=== PATIENT | female | born 1950 | race African-American/Black ===

== ENCOUNTER 2017-03-29 02:56 | Emergency (ER) | payer MEDICARE, OTHER ==
[~2017-03-29] VITALS: Ht 152.4 cm; Wt 81.6 kg
--- NOTE | 2017-03-29 03:15 | NUR ---
Pt BIB [facility], reports that pt was tachypnic at 30-36 and had carpal/pedal spasms; Blood glucose was 185 in field. Pt c/o dizziness and bilateral leg pain, 910, ongoing issue; Pt has +2 non-pitting edema in lower left leg. Also c/o slight dyspnea, LS = w/crackles. Denies CP, n/v, no other complaints, no distress noted.
[2017-03-29] MEDS ORDERED: TRAZ-144 PO (03:26)
[2017-03-29] MEDS ORDERED: TRAM50TA2 PO (03:26)
[2017-03-29] MEDS ORDERED: HYDR-552 PO (03:26)
[2017-03-29] MEDS ORDERED: ATOR80TA PO (03:26)
[2017-03-29] MEDS ORDERED: METO25TA6 PO (03:26)
[2017-03-29] MEDS ORDERED: CITA20TA19 PO (03:26)
[2017-03-29] MEDS ORDERED: POTA-88 PO (03:26)
[2017-03-29] MEDS ORDERED: HYDR12.55 PO (03:26)
[2017-03-29] MEDS ORDERED: SITA100T PO (03:26)
[2017-03-29] MEDS ORDERED: LABETALOL 20 MG/4 ML VIAL IV ONE (03:51)
[2017-03-29 03:52] VITALS: BP 162/138
[2017-03-29] MEDS: LABETALOL HCL 100 MG/20 ML VIAL IV ONE (03:52)
[2017-03-29 03:55] LABS: BASOPHILS % (AUTO) 0.3 % (0.0-2.0); EOSINOPHILS # (AUTO) 0.1 K/uL (0.0-0.7); EOSINOPHILS % (AUTO) 1.2 % (0.0-7.0); HEMATOCRIT 36.6 % (37-47); HEMOGLOBIN 12.3 G/DL (12.0-16.0); LYMPHOCYTES # (AUTO) 1.8 K/UL (0.8-4.8); LYMPHOCYTES % (AUTO) 16.6 % (20.5-51.5); MEAN CORPUSCULAR HEMOGLOBIN 25.5 UUG (27.0-31.0); MEAN CORPUSCULAR HGB CONC 34 g/dL (32.0-37.0); MEAN CORPUSCULAR VOLUME 75.4 FL (81.0-99.0); MONOCYTES # (AUTO) 0.3 K/UL (0.1-1.30); MONOCYTES % (AUTO) 2.5 % (0.0-11.0); NEUTROPHILS # (AUTO) 8.5 K/UL (1.8-8.9); NEUTROPHILS % (AUTO) 79.4 % (38.5-71.5); PLATELET COUNT (AUTO) 325 K/UL (150-450); RED BLOOD CELL COUNT(AUTO) 4.85 MIL/UL (4.2-5.4); RED CELL DISTRIBUTION WIDTH 15.9 % (11.5-14.5); WHITE BLOOD COUNT (AUTO) 10.7 K/UL (4.0-11.2)
[2017-03-29 03:59] LABS: HYPOCHROMASIA 1+; POTASSIUM 3.7 mmol/L (3.5-5.1)
[2017-03-29 04:00] LABS: ANISOCYTOSIS 1+
--- NOTE | 2017-03-29 04:52 | NUR ---
Call placed to [facility] for PET evaluation, Desmond PRITCHARD 60 min.
[2017-03-29 04:56] LABS: *BILIRUBIN,URIN NEGATIVE (NEGATIVE); *BLOOD, URINE NEGATIVE (NEGATIVE); *CLARITY,URINE SLIGHTLY CLOUDY (CLEAR); *COLOR,URINE YELLOW (YELLOW); *KETONES,URINE NEGATIVE (NEGATIVE); *PROTEIN,URINE NEGATIVE (NEGATIVE); *UROBILINOGEN,URINE 0.2 E.U./dl (NORMAL); LEUKOCYTE ESTERASE ,URINE NEGATIVE (NEGATIVE); NITRITE, URINE NEGATIVE (NEGATIVE); UGLUCOSE NEGATIVE (NEGATIVE)
[2017-03-29 05:00] LABS: BACTERIA,URINE FEW /HPF (NONE SEEN); RBC,URINE 0-3 /HPF (0-3); SQUAMOUS EPITHELIAL CELL,UR MANY /HPF (NONE SEEN); WBC,URINE 0-3 /HPF (0-3)
--- NOTE | 2017-03-29 05:00 | NUR ---
Pt sleeping in bed, no distress noted, VSS.
--- NOTE | 2017-03-29 05:45 | NUR ---
[employer] bedside w/pt and family.
[2017-03-29] MEDS: ALPRAZOLAM 0.25 MG TABLET PO ONE (06:05)
[2017-03-29] MEDS ORDERED: ALPRAZOLAM 0.25 MG TABLET ONE (06:10)
--- NOTE | 2017-03-29 06:56 | NUR ---
Gave pt and family RX and d/c instructions, verbalized understanding.
== END 2017-03-29 06:58 | disposition home or self-care (01) ==
LOC: ER 03:00
DX: F41.9 Anxiety disorder, unspecified (principal); I10 Essential (primary) hypertension; R60.0 Localized edema; J45.909 Unspecified asthma, uncomplicated; E11.9 Type 2 diabetes mellitus without complications; Z59.0 Homelessness
CPT/HCPCS: 36415; 71010; 85025; 85730; 93005; A4663; J3490

== ENCOUNTER 2017-03-29 16:48 | Inpatient (IN) | payer MEDICARE, OTHER ==
[~2017-03-29] VITALS: Ht 152.4 cm; Wt 80.7 kg
[~2017-03-29 16:48] MED LIST: ATOR80TA PO; CITA20TA19 PO; HYDR-552 PO; HYDR12.55 PO; METO25TA6 PO; POTA-88 PO; SITA100T PO; TRAM50TA2 PO; TRAZ-144 PO
[2017-03-29] MEDS ORDERED: LABETALOL HCL 100 MG/20 ML VIAL IV ONE (17:00)
--- NOTE | 2017-03-29 17:12 | NUR ---
Tracie ibarra in [facility] - 03/29/17 at 1734 [address] PT [address]
[2017-03-29 17:23] LABS: *BLOOD, URINE Trace-intact (NEGATIVE); *CLARITY,URINE SLIGHTLY CLOUDY (CLEAR); *COLOR,URINE YELLOW (YELLOW); *KETONES,URINE NEGATIVE (NEGATIVE); *PROTEIN,URINE 2+ (NEGATIVE); *UROBILINOGEN,URINE 0.2 E.U./dl (NORMAL); LEUKOCYTE ESTERASE ,URINE NEGATIVE (NEGATIVE); NITRITE, URINE NEGATIVE (NEGATIVE); UGLUCOSE NEGATIVE (NEGATIVE)
[2017-03-29] MEDS ORDERED: LABETALOL 20 MG/4 ML VIAL IV ONE (17:23)
[2017-03-29 17:26] LABS: *BILIRUBIN,URIN 1+ (NEGATIVE)
[2017-03-29 17:33] LABS: BACTERIA,URINE MODERATE /HPF (NONE SEEN); ICTOTEST POSITIVE (NEGATIVE); MUCUS,URINE FEW /LPF (0-FEW); RBC,URINE 0-3 /HPF (0-3); SQUAMOUS EPITHELIAL CELL,UR FEW /HPF (NONE SEEN); WBC,URINE 0-3 /HPF (0-3)
[2017-03-29] MEDS ORDERED: MORPHINE SULFATE 2 MG/1 ML DISP.SYRIN IV ONE (17:45)
[2017-03-29] MEDS ORDERED: ONDANSETRON IV *ER 4 MG/2 ML VIAL IV ONE (17:45)
[2017-03-29] MEDS ORDERED: ONDANSETRON 4 MG/2 ML VIAL ONE (17:50)
[2017-03-29] MEDS ORDERED: MORPHINE SULFATE 2 MG/1 ML DISP.SYRIN ONE (17:50)
--- NOTE | 2017-03-29 17:50 | NUR ---
PT TO CT
--- NOTE | 2017-03-29 18:45 | NUR ---
PT TRANSFERED TO FLOOR I NSTABLE CONDITION
--- NOTE | 2017-03-29 18:55 | NUR ---
PT IS LAYING IN BED. FAMILY IS WITH THE PT. NO S/S OF RESPIRATORY DISTRESS NOTED. PAIN IS REPORTED BY THE PT, WILL ADVICE NOC NURSE. IV INTACT/PATENT.
--- NOTE | 2017-03-29 19:00 | NUR ---
PATIENT ADMITTED UNDER THE CARE OF DR. GLEZ, TELE UNIT, ORIENT TO CALL LIGHTS, BATHROOM, FAMILY AT BEDSIDE. MD AWARE WITH ADMISSION ORDERS.
[2017-03-29 19:05] VITALS: BP 158/89
[2017-03-29] MEDS ORDERED: MAGNESIUM HYDROXIDE 30 ML LIQUID UDC PO PRN (20:45)
[2017-03-29] MEDS ORDERED: hydrALAZINE HCL 25 MG TABLET PO PRN (20:45)
[2017-03-29] MEDS ORDERED: ONDANSETRON 4 MG/2 ML VIAL IV PRN (20:45)
[2017-03-29] MEDS ORDERED: DEXTROSE 50% 50 ML DISP.SYRIN IV PRN (20:45)
[2017-03-29] MEDS ORDERED: ZOLPIDEM 5 MG TABLET PO PRN (20:45)
[2017-03-29] MEDS ORDERED: ACETAMINOPHEN 325 MG TABLET PO PRN (20:45)
[2017-03-29] MEDS ORDERED: HYDROCODONE/APAP 5-325MG TABLET PO PRN (20:45)
[2017-03-29] MEDS ORDERED: DOCUSATE SODIUM 250 MG CAPSULE PO SCH (21:00)
[2017-03-29] MEDS ORDERED: ATORVASTATIN 40 MG TABLET PO SCH (21:00)
[2017-03-29] MEDS ORDERED: Medication Not On Formulary EA (Atorvastatin Calcium (Lipitor) 80 MG) PO SCH (21:00)
[2017-03-29] MEDS: TRAZODONE 50 MG TABLET PO SCH (21:22)
[2017-03-29] MEDS: BLOOD SUGAR DIAGNOSTIC 1 EACH STRIP VI SCH (21:23)
[2017-03-29] MEDS: METOPROLOL TARTRATE 50 MG TABLET PO SCH (21:24)
[2017-03-29] MEDS: INSULIN REGULAR, HUMAN 300 UNIT/3 ML VIAL SQ PRN (21:35)
[2017-03-30] VITALS: BP 150/85
[2017-03-30 04:42] VITALS: BP 110/73
[2017-03-30] MEDS: HYDROCODONE/APAP 5-325MG TABLET PO PRN (05:06)
--- NOTE | 2017-03-30 05:09 | NUR ---
PATIENT SLEPT MOST OF THE NIGHT, RYTHM IS SINUS RYTHM , KEPT CLEAN AND DRY, ON PAIN MANAGEMENT, KEPT BOTH FEET ELEVATED WITH PILLOW. CONT TO MONITOR.
[2017-03-30] MEDS: BLOOD SUGAR DIAGNOSTIC 1 EACH STRIP VI SCH ×4 (06:12→21:35)
[2017-03-30] MEDS: PANTOPRAZOLE SODIUM 40 MG TABLET.DR PO SCH (06:12)
[2017-03-30 07:00] LABS: ALBUMIN 2.6 g/dL (3.4-5.0); BILIRUBIN,TOTAL 0.9 mg/dL (0.2-1.0); CALCIUM 8.3 mg/dL (8.5-10.1); MAGNESIUM 1.6 mg/dL (1.8-2.4); PHOSPHOROUS 3.7 mg/dL (2.5-4.9); POTASSIUM 3.4 mmol/L (3.5-5.1); TOTAL PROTEIN, SERUM 6.2 g/dL (6.4-8.2)
[2017-03-30 07:03] LABS: THYROID STIMULATING HORMONE 2.473 mIU/mL (0.358-3.740)
[2017-03-30 07:19] LABS: CREATININE 1.4 mg/dL (0.6-1.3)
[2017-03-30 07:38] LABS: BASOPHILS # (AUTO) 0.1 K/uL (0.0-8.0); BASOPHILS % (AUTO) 0.6 % (0.0-2.0); EOSINOPHILS # (AUTO) 0.3 K/uL (0.0-0.7); EOSINOPHILS % (AUTO) 3.6 % (0.0-7.0); LYMPHOCYTES # (AUTO) 2.3 K/UL (0.8-4.8); LYMPHOCYTES % (AUTO) 27.1 % (20.5-51.5); MEAN CORPUSCULAR HEMOGLOBIN 24.6 UUG (27.0-31.0); MEAN CORPUSCULAR HGB CONC 32 g/dL (32.0-37.0); MONOCYTES # (AUTO) 0.5 K/UL (0.1-1.30); MONOCYTES % (AUTO) 6.1 % (0.0-11.0); NEUTROPHILS # (AUTO) 5.2 K/UL (1.8-8.9); NEUTROPHILS % (AUTO) 62.6 % (38.5-71.5); PLATELET COUNT (AUTO) 277 K/UL (150-450); RED BLOOD CELL COUNT(AUTO) 4.48 MIL/UL (4.2-5.4); WHITE BLOOD COUNT (AUTO) 8.4 K/UL (4.0-11.2)
--- NOTE | 2017-03-30 08:00 | NUR ---
RECEIVED CHANGE OF SHIFT REPORT. PT IS A/OX1. AROUSABLE BY NAME AND LIGHT TOUCH. PT V/S STABLE. NO ACUTE DISTRESS. PT COMPLAINS OF PAIN 7/10 IN LOWER EXTREMITY BILATERALLY. LEGS ELEVATED. COMPRESSION DEVICE IN PLACE. PT NEEDS MET AT THIS TIME.
[2017-03-30] MEDS: CITALOPRAM 20 MG TABLET PO SCH (08:20)
[2017-03-30] MEDS: POTASSIUM CHLORIDE 20 MEQ TAB.PRT.SR PO SCH (08:21)
[2017-03-30] MEDS: LINAGLIPTIN 5 MG TABLET PO SCH (08:22)
[2017-03-30] MEDS: METOPROLOL TARTRATE 50 MG TABLET PO SCH ×2 (08:22→21:00)
[2017-03-30] MEDS: TRAMADOL HCL 50 MG TABLET PO SCH ×2 (08:26→17:37)
[2017-03-30] MEDS: MIRALAX 17 GM POWD.PACK PO SCH (08:26)
[2017-03-30] MEDS: INSULIN REGULAR, HUMAN 300 UNIT/3 ML VIAL SQ PRN ×2 (08:39→13:03)
[2017-03-30] MEDS ORDERED: Medication Not On Formulary EA (Sitagliptin Phosphate (Januvia) 100 MG) PO SCH (09:00)
[2017-03-30] MEDS ORDERED: HYDROCHLOROTHIAZIDE 12.5 MG CAPSULE PO SCH (09:00)
[2017-03-30] MEDS ORDERED: Medication Not On Formulary EA (Hydrochlorothiazide 12.5 MG) PO SCH (09:00)
[2017-03-30 10:42] LABS: ANISOCYTOSIS 1+; HYPOCHROMASIA 1+; OVALOCYTES 2+
[2017-03-30 11:05] VITALS: BP 100/49
[2017-03-30 15:23] VITALS: BP 97/50
[2017-03-30] MEDS ORDERED: POTASSIUM CHLORIDE 20 MEQ TAB.PRT.SR PO ONE (15:45)
[2017-03-30] MEDS: MAGNESIUM SULFATE/D5W 100 ML IV SCH ×2 (17:26→18:46)
--- NOTE | 2017-03-30 18:30 | NUR ---
END OF SHIFT NOTES. PT A/OX3. V/S WNL. PT STABLE. NO SIGNS OF ACUTE DISTRESS. CALL LIGHT WITHIN REACH. COMFORT AND SAFETY MEASURES MET.
[2017-03-30 19:51] VITALS: BP 100/51
[2017-03-30] MEDS: DOCUSATE SODIUM 100 MG CAPSULE PO SCH ×2 (21:00→21:31)
--- NOTE | 2017-03-30 21:00 | NUR ---
PATIENT AWAKE,ALERT, CONFUSED,IN NO ACUTE DISTRESS,SR ON MONITOR RATE 74 BPM,BP 100/51,HELD APRESOLINE ,CONTINUE MONITOR BP,PATIENT DENIES PAIN/DISCOMFORT, ABLE TO MOVE LOWER EXTREMITIES ,PAS ON,INCONTINENT ,SKIN CARE DONE,NEEDS ATTENDED, BED ALARM ON.
[2017-03-30] MEDS: ATORVASTATIN 20 MG TABLET PO SCH (21:31)
[2017-03-30] MEDS: TRAZODONE 50 MG TABLET PO SCH (21:31)
[2017-03-30] MEDS: INSULIN REGULAR, HUMAN 300 UNITS/3 ML VIAL SQ PRN (21:44)
[2017-03-31] VITALS: BP 115/56
[2017-03-31 04:00] VITALS: BP 119/54
[2017-03-31] MEDS: BLOOD SUGAR DIAGNOSTIC 1 EACH STRIP VI SCH ×4 (06:22→21:10)
[2017-03-31] MEDS: PANTOPRAZOLE SODIUM 40 MG TABLET.DR PO SCH (06:22)
[2017-03-31] MEDS: HYDROCODONE/APAP 5-325MG TABLET PO PRN ×2 (06:27→15:21)
[2017-03-31 07:01] LABS: CALCIUM 8.6 mg/dL (8.5-10.1); CREATININE 1.6 mg/dL (0.6-1.3); MAGNESIUM 2.3 mg/dL (1.8-2.4); POTASSIUM 4.2 mmol/L (3.5-5.1)
[2017-03-31 07:21] LABS: BASOPHILS # (AUTO) 0.1 K/uL (0.0-8.0); BASOPHILS % (AUTO) 1.7 % (0.0-2.0); EOSINOPHILS # (AUTO) 0.3 K/uL (0.0-0.7); EOSINOPHILS % (AUTO) 3.8 % (0.0-7.0); HEMATOCRIT 33.3 % (37-47); HEMOGLOBIN 10.8 G/DL (12.0-16.0); LYMPHOCYTES # (AUTO) 3.4 K/UL (0.8-4.8); LYMPHOCYTES % (AUTO) 39.1 % (20.5-51.5); MEAN CORPUSCULAR HEMOGLOBIN 24.4 UUG (27.0-31.0); MEAN CORPUSCULAR HGB CONC 32 g/dL (32.0-37.0); MEAN CORPUSCULAR VOLUME 75.5 FL (81.0-99.0); MONOCYTES # (AUTO) 0.6 K/UL (0.1-1.30); MONOCYTES % (AUTO) 7.3 % (0.0-11.0); NEUTROPHILS # (AUTO) 4.4 K/UL (1.8-8.9); NEUTROPHILS % (AUTO) 48.1 % (38.5-71.5); PLATELET COUNT (AUTO) 238 K/UL (150-450); RED CELL DISTRIBUTION WIDTH 15.9 % (11.5-14.5); WHITE BLOOD COUNT (AUTO) 8.8 K/UL (4.0-11.2)
[2017-03-31] MEDS: INSULIN REGULAR, HUMAN 300 UNIT/3 ML VIAL SQ PRN ×3 (08:00→16:59)
[2017-03-31] MEDS: CITALOPRAM 20 MG TABLET PO SCH (08:25)
[2017-03-31] MEDS: METOPROLOL TARTRATE 50 MG TABLET PO SCH ×2 (08:29→21:00)
[2017-03-31] MEDS: TRAMADOL HCL 50 MG TABLET PO SCH ×2 (08:29→16:57)
[2017-03-31] MEDS: POTASSIUM CHLORIDE 20 MEQ TAB.PRT.SR PO SCH (08:30)
[2017-03-31] MEDS: MIRALAX 17 GM POWD.PACK PO SCH (08:30)
[2017-03-31] MEDS: LINAGLIPTIN 5 MG TABLET PO SCH (08:30)
--- NOTE | 2017-03-31 09:00 | NUR ---
AWAKE ALERT COOPERATE WELL EAT BREAKFAST WITH GOOD APPETITE ON ASPIRATION/ FALL PRECAUTION BED ALARM ON AND CALL GARCIA IN REACH
--- NOTE | 2017-03-31 10:00 | NUR ---
DR GLEZ SEE PATIENT AND LAB RESULT AND NEW ORDER IN CHART
[2017-03-31 11:25] VITALS: BP 114/62
[2017-03-31 16:00] VITALS: BP 148/80
[2017-03-31] MEDS: IV NS 1000 ML 1,000 ML IV PRN (16:52)
--- NOTE | 2017-03-31 17:00 | NUR ---
HEMODYNAMIC STATUS STABLE PAIN UNDER CONTROL SAFETY MEASURE PROVIDED CALL LIGHT WITHIN REACH
[2017-03-31 20:08] VITALS: BP 101/57
[2017-03-31] MEDS: TRAZODONE 50 MG TABLET PO SCH (21:01)
[2017-03-31] MEDS: ATORVASTATIN 20 MG TABLET PO SCH (21:01)
[2017-03-31] MEDS: DOCUSATE SODIUM 100 MG CAPSULE PO SCH (21:01)
[2017-04-01 00:09] VITALS: BP 120/67
[2017-04-01] MEDS: HYDROCODONE/APAP 5-325MG TABLET PO PRN ×2 (02:30→12:12)
--- NOTE | 2017-04-01 03:31 | NUR ---
patient is afebrile ,bp stable,more alert,calm cooperative,help turn and reposition,continue pain control with [place] 5-325 mg po ,patient appears comfortable,adequate hours of rest and sleep,iv fluid going on,no acute distress,SR on tele monitor.fall precautions ,bed alarm on.
[2017-04-01 04:00] VITALS: BP 115/67
[2017-04-01] MEDS: BLOOD SUGAR DIAGNOSTIC 1 EACH STRIP VI SCH ×4 (06:47→20:26)
[2017-04-01] MEDS: PANTOPRAZOLE SODIUM 40 MG TABLET.DR PO SCH (06:47)
[2017-04-01] MEDS: LINAGLIPTIN 5 MG TABLET PO SCH (08:10)
[2017-04-01] MEDS: POTASSIUM CHLORIDE 20 MEQ TAB.PRT.SR PO SCH (08:10)
[2017-04-01] MEDS: CITALOPRAM 20 MG TABLET PO SCH (08:10)
[2017-04-01] MEDS: METOPROLOL TARTRATE 50 MG TABLET PO SCH ×2 (08:10→20:22)
[2017-04-01] MEDS: TRAMADOL HCL 50 MG TABLET PO SCH ×2 (08:11→17:44)
[2017-04-01] MEDS: MIRALAX 17 GM POWD.PACK PO SCH (08:11)
[2017-04-01] MEDS: INSULIN REGULAR, HUMAN 300 UNIT/3 ML VIAL SQ PRN ×2 (08:13→12:11)
--- NOTE | 2017-04-01 08:30 | NUR ---
AWAKE COOPERATE WELL NO SOB OR PAIN EAT BREAKFAST WELL BED ALARM ON AND CALL GARCIA IN REACH
[2017-04-01] MEDS ORDERED: LINAGLIPTIN 5 MG TABLET PO SCH (09:00)
[2017-04-01] MEDS ORDERED: SITAGLIPTIN PHOSPHATE 50 MG TABLET PO SCH (09:00)
[2017-04-01 10:18] LABS: CALCIUM 8.6 mg/dL (8.5-10.1); CREATININE 1.2 mg/dL (0.6-1.3)
[2017-04-01 10:25] LABS: BASOPHILS # (AUTO) 0.1 K/uL (0.0-8.0); BASOPHILS % (AUTO) 0.9 % (0.0-2.0); EOSINOPHILS # (AUTO) 0.3 K/uL (0.0-0.7); EOSINOPHILS % (AUTO) 4.2 % (0.0-7.0); HEMATOCRIT 34.8 % (37-47); HEMOGLOBIN 11.3 G/DL (12.0-16.0); LYMPHOCYTES # (AUTO) 2.1 K/UL (0.8-4.8); LYMPHOCYTES % (AUTO) 26.4 % (20.5-51.5); MEAN CORPUSCULAR HEMOGLOBIN 24.6 UUG (27.0-31.0); MEAN CORPUSCULAR HGB CONC 33 g/dL (32.0-37.0); MEAN CORPUSCULAR VOLUME 75.5 FL (81.0-99.0); MONOCYTES # (AUTO) 0.4 K/UL (0.1-1.30); NEUTROPHILS % (AUTO) 63.5 % (38.5-71.5); PLATELET COUNT (AUTO) 239 K/UL (150-450); RED CELL DISTRIBUTION WIDTH 15.9 % (11.5-14.5); WHITE BLOOD COUNT (AUTO) 7.9 K/UL (4.0-11.2)
[2017-04-01 11:35] VITALS: BP 130/77
--- NOTE | 2017-04-01 12:00 | NUR ---
RESTING FAMILY AT BEDSIDE STATE PAIN MED HELP TO RELIEF PAIN
[2017-04-01] MEDS: IV NS 1000 ML 1,000 ML IV PRN (12:14)
[2017-04-01 13:57] LABS: BAND % (MANUAL) 1 % (0-10); BASOPHILS % (MANUAL) 1 % (0-2); EOSINOPHILS % (MANUAL) 1 % (0-8); LYMPHOCYTES % (MANUAL) 31 % (20-40); METAMYELOCYTES % 1 % (0-1); MONOCYTES % (MANUAL) 6 % (2-10); NEUTROPHILS % (MANUAL) 59 % (42-75)
[2017-04-01 13:59] LABS: PLATELET ESTIMATE ADEQUATE
[2017-04-01 14:00] LABS: ANISOCYTOSIS 1+; HYPOCHROMASIA 1+
[2017-04-01 14:01] LABS: OVALOCYTES 1+
[2017-04-01 14:02] LABS: TEAR DROP CELLS 1+
[2017-04-01 16:00] VITALS: BP 129/65
--- NOTE | 2017-04-01 18:00 | NUR ---
STABLE HEMODYNAMICS SAFETY MEASURE PROVIDED CALL LIGHT WITHIN REACH
--- NOTE | 2017-04-01 19:00 | NUR ---
PATIENT AWAKE BUT FORGETFULL, NO SOB NO CHEST PAIN, SINUS RYTHM AT THIS TIME. KEPT BOTH LEGS ELEVATED, CONT TO MONITOR.
[2017-04-01 20:00] VITALS: BP 125/65
[2017-04-01] MEDS: DOCUSATE SODIUM 100 MG CAPSULE PO SCH (20:22)
[2017-04-01] MEDS: ATORVASTATIN 20 MG TABLET PO SCH (20:22)
[2017-04-01] MEDS: TRAZODONE 50 MG TABLET PO SCH (20:22)
[2017-04-01] MEDS: INSULIN REGULAR, HUMAN 300 UNITS/3 ML VIAL SQ PRN (20:32)
[2017-04-02 00:08] VITALS: BP 129/64
[2017-04-02] MEDS: HYDROCODONE/APAP 5-325MG TABLET PO PRN (00:23)
[2017-04-02 04:00] VITALS: BP 122/65
--- NOTE | 2017-04-02 04:54 | NUR ---
PATIENT SLEPT MOST OF THE NIGHT, NO SOB NO CHEST PAIN NOTED, SINUS RYTHM, NO S/S OF DISTRESS.
[2017-04-02] MEDS: BLOOD SUGAR DIAGNOSTIC 1 EACH STRIP VI SCH ×3 (05:47→16:30)
[2017-04-02] MEDS: PANTOPRAZOLE SODIUM 40 MG TABLET.DR PO SCH (05:47)
[2017-04-02 06:50] LABS: ALBUMIN 2.2 g/dL (3.4-5.0); BILIRUBIN,TOTAL 0.2 mg/dL (0.2-1.0); CALCIUM 8.7 mg/dL (8.5-10.1); CREATININE 1.3 mg/dL (0.6-1.3); MAGNESIUM 1.8 mg/dL (1.8-2.4); PHOSPHOROUS 3.2 mg/dL (2.5-4.9); POTASSIUM 5.5 mmol/L (3.5-5.1); TOTAL PROTEIN, SERUM 5.8 g/dL (6.4-8.2)
[2017-04-02 06:55] LABS: BASOPHILS # (AUTO) 0.1 K/uL (0.0-8.0); BASOPHILS % (AUTO) 0.9 % (0.0-2.0); EOSINOPHILS # (AUTO) 0.4 K/uL (0.0-0.7); EOSINOPHILS % (AUTO) 4.1 % (0.0-7.0); HEMATOCRIT 32.5 % (37-47); HEMOGLOBIN 10.6 G/DL (12.0-16.0); LYMPHOCYTES # (AUTO) 2.9 K/UL (0.8-4.8); LYMPHOCYTES % (AUTO) 29.9 % (20.5-51.5); MEAN CORPUSCULAR HEMOGLOBIN 24.7 UUG (27.0-31.0); MEAN CORPUSCULAR HGB CONC 33 g/dL (32.0-37.0); MEAN CORPUSCULAR VOLUME 75.6 FL (81.0-99.0); MONOCYTES # (AUTO) 0.5 K/UL (0.1-1.30); MONOCYTES % (AUTO) 5.3 % (0.0-11.0); NEUTROPHILS # (AUTO) 5.8 K/UL (1.8-8.9); NEUTROPHILS % (AUTO) 59.8 % (38.5-71.5); PLATELET COUNT (AUTO) 209 K/UL (150-450); RED CELL DISTRIBUTION WIDTH 15.6 % (11.5-14.5); WHITE BLOOD COUNT (AUTO) 9.8 K/UL (4.0-11.2)
--- NOTE | 2017-04-02 07:20 | NUR ---
PT SLEEPING IN BED, AWAKENS TO NAME. NO SIGNS OF DISTRESS OR SOB. NO NEEDS AT THIS TIME, ALL SAFETY AND COMFORT MEASURES ATTENDED TO, CALL LIGHT IN REACH WILL CONTINUE TO MONITOR
[2017-04-02] MEDS: MIRALAX 17 GM POWD.PACK PO SCH (08:16)
[2017-04-02] MEDS: CITALOPRAM 20 MG TABLET PO SCH (08:17)
[2017-04-02] MEDS: POTASSIUM CHLORIDE 20 MEQ TAB.PRT.SR PO SCH (08:17)
[2017-04-02] MEDS: LINAGLIPTIN 5 MG TABLET PO SCH (08:17)
[2017-04-02] MEDS: TRAMADOL HCL 50 MG TABLET PO SCH ×2 (08:18→16:30)
[2017-04-02] MEDS: METOPROLOL TARTRATE 50 MG TABLET PO SCH (08:19)
--- NOTE | 2017-04-02 08:30 | NUR ---
PT HAD TRADJENTA ORDERED 2X FOR 9AM, ONLY GAVE 1 DOSE AND CALLED PHARMACY REGARDING 2ND DOSE. 2ND DOSE NOT GIVEN PER EUSE[employer], PHARMACIST WILL DISCONTINUE.
[2017-04-02 10:50] LABS: ANISOCYTOSIS 1+; HYPOCHROMASIA 1+
[2017-04-02 10:52] LABS: OVALOCYTES 2+
[2017-04-02 11:24] VITALS: BP 151/59
[2017-04-02] MEDS: INSULIN REGULAR, HUMAN 300 UNIT/3 ML VIAL SQ PRN (11:32)
--- NOTE | 2017-04-02 11:42 | NUR ---
PT CA NOT REMEMBER LAST BOWEL MOVEMENT, PT HAS BEEN HERE 4 DAYS WITH NO BOWEL MOVEMENT, MILK OF MAG WAS GIVEN, WILL CONTINUE TO MONITOR
[2017-04-02] MEDS ORDERED: MINERAL OIL FLEET ENEMA 133 ML BOTTLE RC ONE (12:30)
[2017-04-02 15:07] VITALS: BP 138/76
[2017-04-02] MEDS ORDERED: POLY17PO4 PO (16:53)
[2017-04-02] MEDS ORDERED: PANT40TA2 PO (16:53)
[2017-04-02] MEDS ORDERED: Blood Sugar Diagnostic VI (16:53)
[2017-04-02] MEDS ORDERED: Acetaminophen PO (16:53)
[2017-04-02] MEDS ORDERED: SITA50TA PO (16:53)
[2017-04-02] MEDS ORDERED: Docusate Sodium PO (16:53)
[2017-04-02] MEDS ORDERED: HYDR-3326 PO (16:53)
[2017-04-02] MEDS ORDERED: DEXT50DI8 IV (16:53)
[2017-04-02] MEDS ORDERED: HYDR-894 PO (16:53)
[2017-04-02] MEDS ORDERED: INSU100V28 SQ ×2 (16:53)
[2017-04-02] MEDS ORDERED: ATOR20TA PO (16:53)
[2017-04-02] MEDS ORDERED: NA P133E RC (16:53)
[2017-04-02] MEDS ORDERED: MULT-1045 PO (16:53)
[2017-04-02] MEDS ORDERED: Zolpidem Tartrate PO (16:53)
[2017-04-02] MEDS ORDERED: BISA10SU12 RC (16:53)
[2017-04-02] MEDS ORDERED: SODIUM POLYSTYRENE SULFONATE 15 G/60 ML LIQUID UDC PO ONE (17:00)
--- NOTE | 2017-04-02 19:11 | NUR ---
PT HAD LARGE BM RIGHT AMBULANCE ARRIVED, [employer] MAN CLEANED PT. ALL BELONGINGS ACCOUNTED FOR AND RETURNED TO PT. IV TAKEN OUT WITH NO REDNESS OR IRRITATION NOTED. PT AND DAUGHTER VERBALIZED DISCHARGE UNDERSTANDING. PT LEFT VIA GURNEY WITH AMBULANCE STAFF.
[2017-04-03 14:14] LABS: PTH, INTACT 22 pg/mL (15-65)
[2017-04-04 10:13] LABS: A/G RATIO 0.9 (0.7-1.7); ALBUMIN 2.6 g/dL (2.9-4.4); ALPHA-1-GLOBULIN 0.2 g/dL (0.0-0.4); ALPHA-2-GLOBULIN 0.6 g/dL (0.4-1.0); BETA GLOBULIN 0.9 g/dL (0.7-1.3); GAMMA GLOBULIN 1.2 g/dL (0.4-1.8); GLOBULIN, TOTAL 2.8 g/dL (2.2-3.9); M-SPIKE Not Observed g/dL (Not Observed)
== END 2017-04-02 18:50 | DRG 77 ==
LOC: ER 16:48 → TELE 18:29
PROVIDERS: ADMIT Internal Medicine; ATTEND Internal Medicine
DX: I67.4 Hypertensive encephalopathy (principal); E43 Unspecified severe protein-calorie malnutrition; N17.0 Acute kidney failure with tubular necrosis; I50.31 Acute diastolic (congestive) heart failure; D68.59 Other primary thrombophilia; I13.0 Hypertensive heart and chronic kidney disease with heart failure and stage 1 through stage 4 chronic kidney disease, or unspecified chronic kidney disease; F03.90 Unspecified dementia, unspecified severity, without behavioral disturbance, psychotic disturbance, mood disturbance, and anxiety; J45.909 Unspecified asthma, uncomplicated; F41.9 Anxiety disorder, unspecified; Z59.0 Homelessness; E66.01 Morbid (severe) obesity due to excess calories; E11.65 Type 2 diabetes mellitus with hyperglycemia; E87.5 Hyperkalemia; K56.41 Fecal impaction; Z86.711 Personal history of pulmonary embolism; Z86.718 Personal history of other venous thrombosis and embolism; Z86.73 Personal history of transient ischemic attack (TIA), and cerebral infarction without residual deficits; I27.2 Other secondary pulmonary hypertension; D50.9 Iron deficiency anemia, unspecified; G89.29 Other chronic pain; Z79.899 Other long term (current) drug therapy; R19.5 Other fecal abnormalities; Z68.34 Body mass index [BMI] 34.0-34.9, adult; I36.1 Nonrheumatic tricuspid (valve) insufficiency; N18.9 Chronic kidney disease, unspecified; K64.9 Unspecified hemorrhoids; R94.31 Abnormal electrocardiogram [ECG] [EKG]
CPT/HCPCS: 36415; 70030-TC; 70450; 83550; 83735; 83970; 84100; 84155; 84165; 84443; 85025; 87086; 93005; 93307; 97001; 97003; 97116; 97530; A4663; C1758; J1815; J2270; J2405; J3475; J3490; J7030; J7040